=== PATIENT | female | born 1985 | race African-American/Black ===

== ENCOUNTER 2016-04-25 04:02 | Inpatient (IN) | payer OTHER ==
[~2016-04-25] VITALS: Ht 167.6 cm; Wt 75.0 kg
[~2016-04-25 04:02] MED LIST: FE A1TAB3 PO; FERR325T72 PO
[2016-04-25] MEDS ORDERED: NIFEdipine 10 MG CAP ONE (04:28)
[2016-04-25] MEDS ORDERED: LACTATED RINGER'S 1000 ML INJ 1,000 ML IV SCH ×3 (04:52→14:00)
[2016-04-25] MEDS ORDERED: MAGNESIUM SULFATE 40 GM PREMIX 1,000 ML IV SCH ×2 (04:52→12:00)
[2016-04-25] MEDS ORDERED: MAGNESIUM SULFATE 40 GM PREMIX 1,000 ML ONE (04:55)
[2016-04-25] MEDS ORDERED: MAGNESIUM SULFATE 4 GM PREMIX 100 ML ONE (04:55)
[2016-04-25] MEDS ORDERED: CALCIUM GLUCONATE 10% 1 GM/10 ML VIAL IV PUSH PRN (05:00)
[2016-04-25] MEDS ORDERED: ACETAMINOPHEN 325 MG TAB PO PRN ×2 (05:00→11:30)
[2016-04-25] MEDS ORDERED: ONDANSETRON HCL 4 MG/2 ML VIAL IV PRN (05:00)
[2016-04-25] MEDS ORDERED: SODIUM CHLORIDE 0.9% FLUSH 5 ML FLUSH IV PRN ×2 (05:00→11:30)
[2016-04-25] MEDS ORDERED: NIFEdipine 10 MG CAP PO PRN ×3 (05:00→05:45)
[2016-04-25] MEDS ORDERED: MAGNESIUM SULFATE 4 GM PREMIX 100 ML IV ONE (05:00)
[2016-04-25] MEDS ORDERED: LACTATED RINGER'S 1000 ML INJ 1,000 ML IV PRN (05:01)
--- NOTE | 2016-04-25 05:01 | PD ---
HPI Chief Complaint contractions Date Seen: Apr 25, 2016 Time Seen: 05:01 Travel History International Travel<30 Days: No Contact w/Intl Traveler<30Days: No Known Affected Area: No History of Present Illness HPI Patient is a 31 year old at 37 and 4/7 weeks gestation by second trimester ultrasound on 11/09/15, ROSE 05/12/2016, who presents to the OB ED with complaints of lower abdominal/uterine contractions every 5 minutes. She denies leakage of fluid, vaginal bleeding, and contractions. She feels baby moving regularly. She denies VARMA/N/V/D/fever/sick contacts/SOB/calf pain/dizziness/seeing spots. She denies dysuria and has not had dark urine. OB care is with [facility]. Notably, patient states she has never had issues with blood pressure during or outside of . Previously 3 pregnancies uncomplicated. For this , she denies having any complications, infections, abnormal labs, or abnormal ultrasound. She states she missed an appointment with [facility] last week and does not recall getting tested for GBS. She is having a boy and will like an epidural. EMR records show she wants a tubal ligation. Para: 3 : 4 History Past Medical History Medical History: Denies Significant Hx Obstetric History Obstetric History Previous pregnancies term vaginal deliveries No history of HTN, gestational HTN, or preE Past Surgical History Surgical History: No Previous Surgery Family History Family History: Negative Social History Narrative Social History Patient reports 1-2 cigarettes daily and occasional alcohol use prior to finding out she was Denies illicit drug use Alcohol Use: No Tobacco Use: No Substance Abuse: No Allergies-Medications (Allergen,Severity, Reaction): Coded Allergies: No Known Allergies (Unverified , 04/03/16) Home Meds Active Scripts Ferrous Gluconate 325 Mg Dac327 Mg PO DAILY #30 TAB Ref 0 Prov:Adrianna Cannon CNM [facility] 03/12/16 Multi-Yolanda/Iron-Vit C-U83-Pqexk Acid (Feriva 09/11)75-175-0.012-1 mg Tab1 Tab PO DAILY #30 BOTTLE Ref 6 Prov:Arianne Bergeron [employer] 02/28/16 Review of Systems General / Constitutional: No: Fever, Chills Eyes: No: Diploplia, Blurred Vision HENT: Other (no blurry vision), No: Headaches, Vertigo Cardiovascular: No: Chest Pain or Discomfort, Edema Respiratory: No: Short of Breath Gastrointestinal: Abdominal Pain, No: Vomiting, Diarrhea Genitourinary: No: Dysuria Musculoskeletal: No: Weakness Skin: No Rash Neurologic: No: Dizziness, Headache Hematologic/Lymphatic: No Easy Bruising Physical Exam Narrative GENERAL: Well-nourished, well-developed female having pain with contractions. SKIN: Warm and dry. No rashes. HEAD: Normocephalic and atraumatic. EYES: No scleral icterus. No injection or drainage. ENT: No nasal drainage noted. Mucous membranes pink. Airway patent. NECK: Supple, trachea midline. No JVD. CARDIOVASCULAR: Regular rate and rhythm without murmurs, gallops, or rubs. RESPIRATORY: Breath sounds equal bilaterally. No accessory muscle use. ABDOMEN/GI: Abdomen soft, non-tender, bowel sounds present, no rebound, no guarding Gravid to 36 weeks size GENITOURINARY: External Genitalia: intact and normal in appearance Cervix: medium consistency Dilatation: 5-6cm Effacement: 80% Station: -1 Presentation: vertex Membranes: intact Uterine Contractions: strong, every 5-6 minutes FHT's: Category: 1 Baseline: 145 Reactive: none Variability: moderate Decels: none EXTREMITIES: No cyanosis or edema. BACK: Nontender without obvious deformity. No CVA tenderness. NEUROLOGICAL: Awake and alert. Motor and sensory grossly within normal limits. Grossly normal muscle strength in all muscle groups. Normal speech. Data Data Orders Nifedipine (Procardia) (04/25/16 04:28) Admit To Inpatient (04/25/16 ) Vital Signs (Adult) Q5MX4,Q15MX4,Q30MX2,Q1H (04/25/16 04:52) Activity Bed Rest (04/25/16 04:52) Intake + Output Q1H (04/25/16 04:52) ^ Notify Parameters (04/25/16 04:52) ^ Heart CONTINUOUS (04/25/16 04:52) Urinary Catheter Management THERESA.Q8H (04/25/16 04:52) ^ Check Deep Tendon Reflexes Q1H (04/25/16 04:52) Diet Npo (04/25/16 Breakfast) Lactated Ringer's 1000 Ml Inj (Lr 1000 M (04/25/16 04:52) Sodium Chloride 0.9% Flush (Ns Flush) (04/25/16 05:00) Sodium Chloride 0.9% Flush (Ns Flush) (04/25/16 09:00) Magnesium Sulfate 40 Gm Premix (Magnesiu (04/25/16 04:52) Nifedipine (Procardia) (04/25/16 05:00) Nifedipine (Procardia) (04/25/16 05:15) Nifedipine (Procardia) (04/25/16 05:45) Labetalol Inj (Trandate Inj) (04/25/16 06:00) Calcium Gluconate Inj (Calcium Gluconate (04/25/16 05:00) Acetaminophen (Tylenol) (04/25/16 05:00) Ondansetron Inj (Zofran Inj) (04/25/16 05:00) Cbc No Diff, Includes Plts (04/26/16 06:00) Comprehensive Metabolic Panel (04/25/16 04:52) Uric Acid (04/25/16 04:52) Urinalysis - C+S If Indicated (04/25/16 04:52) Magnesium Sulfate 4 Gm Premix (Magnesium (04/25/16 05:00) ^ Halfway House Counselor / Telemetry (04/25/16 04:52) Specimen To Be Collected PRN (04/25/16 04:52) Ob (2e) Additional Admit Info (04/25/16 04:55) Magnesium Sulfate 4 Gm Premix (Magnesium (04/25/16 04:55) Magnesium Sulfate 40 Gm Premix (Magnesiu (04/25/16 04:55) MDM Medical Record Reviewed: Yes Interpretation(s) Vital signs: Initial BP 205/117, pulse 88, respiratory rate 22, temperature 98.1F. Repeat BPs showing modest decrease in systolic blood pressure, with most recent BP 155/102 at 0545 s/p nifedipine 10mg PO and Mg bolus. Narrative Course / MDM 31-year-old at 37 and 4/7 weeks, [facility] patient, presenting to the ED in labor and with elevated blood pressures indicative of Pre-Eclampsia. Intrauterine : Category 1 tracing Contractions every 5-6 minutes Expect No ROM Epidural for pain CBC pending U/A pending IV fluids Monitor heart tones Routine care Monitor strip, initiate labor augmentation if indicated Pre-Eclampsia: Blood pressures elevated to 200s/100s Rule out preeclampsia CBC, CMP, urinalysis, uric acid pending Procardia 10 mg by mouth x 1 followed by initiation of Mg gtt with bolus per protocol. Continue gtt at rate per protocol. Insert Gabriel. Monitor Is/Os and neuro exam. Blood pressure control with preeclampsia protocol: Procardia by mouth first, labetalol if blood pressure refractory to Procardia GBS unknown: >37 weeks gestation --> monitor clinically, continue expectant management, initiate antibx for fever, clinical signs of infx DW Dr. Yobani MD SDW Dr. Juan Antonio Gaitan. , PGY3 Diagnosis Diagnosis: Primary Impression: Pre-eclampsia Additional Impression: Normal intrauterine in third trimester Kenya Melgoza MD R1 Apr 25, 2016 05:01 Magnesium Sulfate 40 Gm Premix (Magnesiu (04/25/16 04:52) Nifedipine (Procardia) (04/25/16 05:00) Nifedipine (Procardia) (04/25/16 05:15) Nifedipine (Procardia) (04/25/16 05:45) Labetalol Inj (Trandate Inj) (04/25/16 06:00) Calcium Gluconate Inj (Calcium Gluconate (04/25/16 05:00) Acetaminophen (Tylenol) (04/25/16 05:00) Ondansetron Inj (Zofran Inj) (04/25/16 05:00) Cbc No Diff, Includes Plts (04/26/16 06:00) Comprehensive Metabolic Panel (04/25/16 04:52) Uric Acid (04/25/16 04:52) Urinalysis - C+S If Indicated (04/25/16 04:52) Magnesium Sulfate 4 Gm Premix (Magnesium (04/25/16 05:00) ^ Halfway House Counselor / Telemetry (04/25/16 04:52) Specimen To Be Collected PRN (04/25/16 04:52) Ob (2e) Additional Admit Info (04/25/16 04:55) Magnesium Sulfate 4 Gm Premix (Magnesium (04/25/16 04:55) Magnesium Sulfate 40 Gm Premix (Magnesiu (04/25/16 04:55) Kenya Melgoza MD R1 Apr 25, 2016 05:01
[2016-04-25] MEDS ORDERED: LIDOCAINE HCL 1% 50 ML VIAL INFIL PRN (05:15)
[2016-04-25] MEDS ORDERED: LIDOCAINE HCL 1% 50 ML VIAL I-DERMAL PRN (05:15)
[2016-04-25] MEDS ORDERED: OXYTOCIN 30 UNITS-500ML PREMIX 500 ML IV ONE (05:15)
[2016-04-25] MEDS ORDERED: CITRIC ACID-SODIUM CITRATE LIQ 30 ML UDC PO SCH (05:15)
[2016-04-25] MEDS ORDERED: PENICILLIN G POT 5,000,000 UNITS/NS 100 ML(Mini-Bag Plus) IV ONE ×2 (05:30)
[2016-04-25] MEDS ORDERED: fentaNYL 2MCG-BUPIV 0.125% INJ 100 ML ONE (05:31)
[2016-04-25 05:41] LABS: AUTOMATED NEUTROPHIL # 6.3 TH/MM3 (1.8-7.7); BASOPHIL % 0.3 % (0.0-2.0); EOSINOPHIL % 0.2 % (0.0-4.0); HEMATOCRIT 33.1 % (35.0-46.0); HEMO FLAGS DIFF FINAL; LYMPH % 21.6 % (9.0-44.0); MEAN CELL VOLUME 97.5 FL (80.0-100.0); MEAN CORPUSCULAR HEMOGLOBIN 33.3 PG (27.0-34.0); MEAN CORPUSCULAR HGB CONC 34.2 % (32.0-36.0); MONO % 8.3 % (0.0-8.0); NEUT % 69.6 % (16.0-70.0); PLATELET COUNT 172 TH/MM3 (150-450); RED BLOOD COUNT 3.39 MIL/MM3 (4.00-5.30); RED CELL DISTRIBUTION WIDTH 13.3 % (11.6-17.2)
[2016-04-25 05:46] LABS: ALKALINE PHOSPHATASE 114 U/L (45-117); ALT (GPT) 13 U/L (10-53); ANION GAP 10 MEQ/L (5-15); AST (GOT) 15 U/L (15-37); BICARBONATE 23.4 MEQ/L (21.0-32.0); BLOOD UREA NITROGEN 12 MG/DL (7-18); CHLORIDE 105 MEQ/L (98-107); GLOMERULAR FILTRATION RATE 88 ML/MIN (>89); POTASSIUM 3.6 MEQ/L (3.5-5.1); SODIUM (NA) 138 MEQ/L (136-145); TOTAL BILIRUBIN ADULT 0.3 MG/DL (0.2-1.0); URIC ACID 3.2 MG/DL (2.6-6.0)
--- NOTE | 2016-04-25 05:47 | HHI.HP ---
HPI Chief Complaint contractions Date Seen: Apr 25, 2016 Time Seen: 05:01 Travel History International Travel<30 Days: No Contact w/Intl Traveler<30Days: No Known Affected Area: No History of Present Illness HPI Patient is a 31 year old at 37 and 4/7 weeks gestation by second trimester ultrasound on 11/09/15, ROSE 05/12/2016, who presents to the OB ED with complaints of lower abdominal/uterine contractions every 5 minutes. She denies leakage of fluid, vaginal bleeding, and contractions. She feels baby moving regularly. She denies VARMA/N/V/D/fever/sick contacts/SOB/calf pain/dizziness/seeing spots. She denies dysuria and has not had dark urine. OB care is with [facility]. Notably, patient states she has never had issues with blood pressure during or outside of . Previously 3 pregnancies uncomplicated. For this , she denies having any complications, infections, abnormal labs, or abnormal ultrasound. EMR notes do not document BP abnormalities during care, DESMOND 02/28/16 per EMR. She notable has anemia with Hgb 7.7 at 29 weeks, was started on iron, improved to 9.1 on March 09. She states she missed an appointment with [facility] last week and does not recall getting tested for GBS. She is having a boy and will like an epidural. EMR records show she wants a tubal ligation. Para: 3 : 4 History Past Medical History Medical History: Denies Significant Hx Obstetric History Obstetric History First in 2001: 40 weeks, , 7 lbs. 14 oz. male, 10 hour labor, epidural used First in 2004: 40 weeks, , 7 lbs. 5 oz. male, 4 hour labor, no epidural used First in 2011: 40 weeks, , 7 lbs. 5 oz. male, 3 hour labor, epidural used No history of HTN, gestational HTN, or preE labs: overall unremarkable, Hep B negative, rubella immune, 1 hour GGT 139, no documented 3 hour GTT. Negative aneuploidy screen during 10/2015. Negative MSAFP markers. Ultrasound 02/02/2016: Synechiae noted on ultrasound report Ultrasound 03/19/16: AGA, no anomalies noted, unable to evaluate for synechiae due to gestational age, normal amniotic fluid, 3 vessel cord, grade 2 posterior placenta, no evidence of previa, incidental BPP 11/27 Past Surgical History Surgical History: Unable to Obtain Family History Family History: Negative Social History Narrative Social History Patient reports 1-2 cigarettes daily and occasional alcohol use prior to finding out she was Denies illicit drug use Alcohol Use: No Tobacco Use: No Substance Abuse: No Allergies-Medications (Allergen,Severity, Reaction): Coded Allergies: No Known Allergies (Unverified , 04/03/16) Home Meds Active Scripts Ferrous Gluconate 325 Mg Zoh592 Mg PO DAILY #30 TAB Ref 0 Prov:CannonAdrianna CNM [facility] 03/12/16 Multi-Oylanda/Iron-Vit C-C71-Rarad Acid (Feriva 09/11)75-175-0.012-1 mg Tab1 Tab PO DAILY #30 BOTTLE Ref 6 Prov:Arianne Bergeron [facility] 02/28/16 Review of Systems General / Constitutional: No: Fever, Chills Eyes: No: Diploplia, Blurred Vision HENT: No: Headaches Cardiovascular: No: Chest Pain or Discomfort, Palpitations Respiratory: No: Cough, Short of Breath Gastrointestinal: Abdominal Pain, No: Nausea, Vomiting, Diarrhea, Constipation Genitourinary: No: Dysuria Musculoskeletal: No: Weakness Skin: No Rash Neurologic: No: Weakness, Syncope Hematologic/Lymphatic: No Easy Bruising Physical Exam Narrative GENERAL: Well-nourished, well-developed female having pain with contractions. SKIN: Warm and dry. No rashes. HEAD: Normocephalic and atraumatic. EYES: No scleral icterus. No injection or drainage. ENT: No nasal drainage noted. Mucous membranes pink. Airway patent. NECK: Supple, trachea midline. No JVD. CARDIOVASCULAR: Regular rate and rhythm without murmurs, gallops, or rubs. RESPIRATORY: Breath sounds equal bilaterally. No accessory muscle use. ABDOMEN/GI: Abdomen soft, non-tender, bowel sounds present, no rebound, no guarding Gravid to 36 weeks size GENITOURINARY: External Genitalia: intact and normal in appearance Cervix: medium consistency Dilatation: 5-6cm Effacement: 80% Station: -1 Presentation: vertex Membranes: intact Uterine Contractions: strong, every 5-6 minutes FHT's: Category: 1 Baseline: 145 Reactive: none Variability: moderate Decels: none EXTREMITIES: No cyanosis or edema. BACK: Nontender without obvious deformity. No CVA tenderness. NEUROLOGICAL: Awake and alert. Motor and sensory grossly within normal limits. Grossly normal muscle strength in all muscle groups. Normal speech. Data Data Vital Signs Reviewed: Yes (Initial BP 205/117, pulse 88, respiratory rate 22, temperature 98.1F. Repeat BPs downtrending, with most recent BP 155/102 at 0545 s/p nifedipine 10mg PO and Mg bolus) Orders Nifedipine (Procardia) (04/25/16 04:28) Admit To Inpatient (04/25/16 ) Vital Signs (Adult) Q5MX4,Q15MX4,Q30MX2,Q1H (04/25/16 04:52) Activity Bed Rest (04/25/16 04:52) Intake + Output Q1H (04/25/16 04:52) ^ Notify Parameters (04/25/16 04:52) ^ Heart CONTINUOUS (04/25/16 04:52) Urinary Catheter Management THERESA.Q8H (04/25/16 04:52) ^ Check Deep Tendon Reflexes Q1H (04/25/16 04:52) Diet Npo (04/25/16 Breakfast) Lactated Ringer's 1000 Ml Inj (Lr 1000 M (04/25/16 04:52) Sodium Chloride 0.9% Flush (Ns Flush) (04/25/16 05:00) Sodium Chloride 0.9% Flush (Ns Flush) (04/25/16 09:00) Magnesium Sulfate 40 Gm Premix (Magnesiu (04/25/16 04:52) Nifedipine (Procardia) (04/25/16 05:00) Nifedipine (Procardia) (04/25/16 05:15) Nifedipine (Procardia) (04/25/16 05:45) Labetalol Inj (Trandate Inj) (04/25/16 06:00) Calcium Gluconate Inj (Calcium Gluconate (04/25/16 05:00) Acetaminophen (Tylenol) (04/25/16 05:00) Ondansetron Inj (Zofran Inj) (04/25/16 05:00) Cbc No Diff, Includes Plts (04/26/16 06:00) Comprehensive Metabolic Panel (04/25/16 04:52) Uric Acid (04/25/16 04:52) Magnesium Sulfate 4 Gm Premix (Magnesium (04/25/16 05:00) ^ Loan Auditor / Telemetry (04/25/16 04:52) Specimen To Be Collected PRN (04/25/16 04:52) Ob (2e) Additional Admit Info (04/25/16 04:55) Magnesium Sulfate 4 Gm Premix (Magnesium (04/25/16 04:55) Magnesium Sulfate 40 Gm Premix (Magnesiu (04/25/16 04:55) Admit To Inpatient (04/25/16 ) Code Status (04/25/16 05:01) Vital Signs (Adult) .Per protocol (04/25/16 05:01) ^ Heart (04/25/16 05:01) ^ Amnioinfusion (04/25/16 05:01) Urinary Catheter Management .ONCE (04/25/16 05:01) Lactated Ringer's 1000 Ml Inj (Lr 1000 M (04/25/16 05:01) Lactated Ringer's 1000 Ml Inj (Lr 1000 M (04/25/16 05:01) Lidocaine 1% Inj (50 Ml) (Xylocaine 1% I (04/25/16 05:15) Citric Acid-Sodium Citrate Liq (Bicitra (04/25/16 05:15) Fentanyl Inj (Fentanyl Inj) (04/25/16 05:15) Fentanyl Inj (Fentanyl Inj) (04/25/16 05:15) ^ Epidural / Intrathecal Infus (04/25/16 05:01) Oxytocin 30 Units-500ml Premix (Pitocin (04/25/16 05:15) Lidocaine 1% Inj (50 Ml) (Xylocaine 1% I (04/25/16 05:15) Inpatient Certification (04/25/16 ) Hold Clot (04/25/16 05:08) Abo/Rh Blood Type (04/25/16 05:08) Penicillin G Potassium Inj (Pfizerpen-G (04/25/16 05:30) Penicillin G Potassium Inj (Pfizerpen-G (04/25/16 10:00) Fentanyl 2mcg-Bupiv 0.125% Inj (Fentanyl (04/25/16 05:31) Complete Blood Count With Diff (04/25/16 05:33) Urinalysis - C+S If Indicated (04/25/16 05:33) Labs Laboratory Tests Test 04/25/16 04:40 White Blood Count 9.0 Red Blood Count 3.39 Hemoglobin 11.3 Hematocrit 33.1 Mean Corpuscular Volume 97.5 Mean Corpuscular Hemoglobin 33.3 Mean Corpuscular Hemoglobin 34.2 Concent Red Cell Distribution Width 13.3 Platelet Count 172 Mean Platelet Volume 10.7 Neutrophils (%) (Auto) 69.6 Lymphocytes (%) (Auto) 21.6 Monocytes (%) (Auto) 8.3 Eosinophils (%) (Auto) 0.2 Basophils (%) (Auto) 0.3 Neutrophils # (Auto) 6.3 Lymphocytes # (Auto) 2.0 Monocytes # (Auto) 0.8 Eosinophils # (Auto) 0.0 Basophils # (Auto) 0.0 CBC Comment DIFF FINAL Differential Comment Assessment/Plan Problem List: (1) Normal intrauterine in third trimester (2) Pre-eclampsia (3) GBS unknown at >37 weeks gestation Assessment and Plan 31-year-old at 37 and 4/7 weeks, [facility] patient, presenting to the ED in labor and with elevated blood pressures indicative of Pre-Eclampsia. Intrauterine : Category 1 tracing Contractions every 5-6 minutes Expect No ROM Epidural for pain CBC pending U/A pending IV fluids Monitor heart tones Routine care Monitor strip, initiate labor augmentation if indicated Pre-Eclampsia: Blood pressures elevated to 200s/100s Rule out preeclampsia CBC, CMP, urinalysis, uric acid pending Procardia 10 mg by mouth x 1 followed by initiation of Mg gtt with bolus per protocol. Continue gtt at rate per protocol. Insert Gabriel. Monitor Is/Os and neuro exam. Blood pressure control with preeclampsia protocol: Procardia by mouth first, labetalol if blood pressure refractory to Procardia GBS unknown: >37 weeks gestation --> monitor clinically, continue expectant management, initiate antibx for fever, clinical signs of infx DW Dr. Yobani MD SDW Dr. Juan Antonio Gaitan. , PGY3 Kenya Melgoza MD R1 Apr 25, 2016 05:47
[2016-04-25 05:56] LABS: BLOOD, URINE NEG (NEG); GLUCOSE,URINE NEG (NEG); HYALINE CAST, URINE 1 /lpf (RARE); KETONE, URINE NEG (NEG); MUCUS URINE FEW /lpf (OCC); NITRITE,URINE NEG (NEG); PH, URINE 6.5 (5.0-8.5); SQUAMOUS EPITHELIAL CELL URINE 2 /hpf (0-5); URINE COLOR YELLOW (YELLW/STRAW)
[2016-04-25 05:57] LABS: COMMENT (UR) CATH-CULT NOT IND; CULTURE IF INDICATED CATH CULTURE NOT IND
[2016-04-25] MEDS ORDERED: LABETALOL HCL 100 MG/20 ML VIAL IV PUSH PRN (06:00)
[2016-04-25] MEDS ORDERED: DO NOT ADMINISTER ANTICOAGULANTS XX PRN (06:45)
[2016-04-25] MEDS ORDERED: ePHEDrine/NS 50 MG/5 ML SYR IV PRN (06:45)
[2016-04-25] MEDS ORDERED: fentaNYL 2MCG-BUPIV 0.125% INJ 100 ML EPIDURAL SCH (06:45)
[2016-04-25] MEDS ORDERED: NO SYSTEM NARCOTICS XX PRN (06:45)
--- NOTE | 2016-04-25 07:11 | PD ---
History of Present Illness History of Present Illness This patient is a 31-year-old black female 37 weeks' gestation presents in active labor to OB ED. She is dilated 6 cm with intact membranes reactive heart rate tracing and contractions are regular. Also her blood pressure is 200/110 range and she has no history of hypertension. He is [facility] by [facility]. She is being seen by the family medicine residents as well as myself at the time of her admission. Patient was patient is one of active labor at 37 weeks gestation with a state induced hypertension/preeclampsia plan is to admit to labor and delivery expected vaginal delivery begin magnesium sulfate IV seizure prophylaxis check PIH lab and will anticipate vaginal delivery Angel Hilton II, MD Apr 25, 2016 07:10
[2016-04-25] MEDS ORDERED: SODIUM CHLORIDE 0.9% FLUSH 5 ML FLUSH IV SCH ×2 (09:00→11:30)
--- NOTE | 2016-04-25 09:24 | PD.LABORPN ---
Subjective Subjective Patient seen and exam. Epidural in place, patient comfortable. AROM with clear fluid. No current complaints. Objective Objective Pelvic Exam: Cervix: Mid Dilatation: 7cm Effacement: 90% Station: 0 Presentation: Vertex Membranes: AROM, clear fluid Uterine Contractions: Q5-6m FHT's: Category: 1 Baseline: 130 Reactive: + Variability:Moderate Decels: None Assessment/Plan Problem List: (1) Normal intrauterine in third trimester (2) Pre-eclampsia (3) GBS unknown at >37 weeks gestation Assessment and Plan Ms. Mtz is a 36 y/o at 37/4 in active labor -AROM with clear fluid -Epidural in place, patient comfortable -VSS -Continue routine labor care -Anticipate SDW: Jose David Ford MD R1 Apr 25, 2016 09:24
[2016-04-25] MEDS ORDERED: PENICILLIN G POT 2,500,000 UNITS/NS 100 ML IV SCH ×2 (10:00)
--- NOTE | 2016-04-25 10:31 | PD.LABORPN ---
Subjective Subjective Changing shifts Dr. Rasheed coming on duty; Patient comfortable with an epidural She is a 31-year-old 4 para 3 at 37 weeks being treated for preeclampsia Objective Objective Pelvic Exam: Cervix: [-] Midline Dilatation: [-] 9 cm Effacement: [-] 100% effaced Station: [-] -1 station Presentation: [-] Vertex Membranes: ruptured] clear per the rupturing DrAnahy Uterine Contractions: [-] Every 3 minutes FHT's: Category: [-] 1 Baseline: [-] 130 Reactive: [-]+ Variability: [-] Moderate Decels: [-] 0 Assessment/Plan Problem List: (1) Normal intrauterine in third trimester (2) Pre-eclampsia (3) GBS unknown at >37 weeks gestation Assessment and Plan Assessment; progressing to the second stage of labor Multiparous Blood pressure 139/92 On magnesium sulfate Plan; anticipate vaginal delivery Cristal Shaffer MD Apr 25, 2016 10:31
--- NOTE | 2016-04-25 11:22 | PD.OB.DELI ---
Delivery Date: Apr 25, 2016 Anesthesia: Epidural Episiotomy: None Vaginal Delivery: Normal Presentation: Occiput anterior Nuchal Cord: None Infant: Male One Minute : 7 Five Minute : 9 Weight: 3175 Infant Care: Suctioned, Blow-by O2 delivered Placenta: Spontaneous delivery, Intact, 3 vessel cord Laceration: No lacerations Additional Information This patient is a 31-year-old 4 now para 4 admitted in active labor with elevated blood pressure diagnosed with preeclampsia she was begun on magnesium sulfate Gabriel catheter placed draining adequate clear urine She progressed in labor received an epidural became comfortable rapidly progressed to the second stage she delivered over an intact perineum a viable male infant weight 3175 g equaling 7 pounds even with Apgars of 7 at 1 minute and 9 at 5 minutes Placenta delivered spontaneously and intact No lacerations Estimated blood loss less than 300 cc Sponge and instrument count were correct Uterus firm no active bleeding Baby stable mother stable Questions were answered Cristal Shaffer MD Apr 25, 2016 11:22
[2016-04-25] MEDS ORDERED: ALUMINUM/MAGNESIUM/SIMETH 30 ML CUP PO PRN (11:30)
[2016-04-25] MEDS ORDERED: ONDANSETRON ODT 4 MG TAB PO PRN (11:30)
[2016-04-25] MEDS ORDERED: BENZOCAINE 20% TOPICAL SPRAY 60 ML CAN TOPICAL PRN (11:30)
[2016-04-25] MEDS ORDERED: WITCH HAZEL 50%/GLYCERIN 12.5% 40 PAD JAR TOPICAL PRN (11:30)
[2016-04-25] MEDS ORDERED: ZOLPIDEM TARTRATE 5 MG TAB PO PRN (11:30)
[2016-04-25] MEDS ORDERED: DOCUSATE SODIUM 50 MG/SENNA 8.6 MG TAB PO PRN (11:30)
[2016-04-25] MEDS ORDERED: MISOPROSTOL 200 MCG TAB ONE (14:35)
--- NOTE | 2016-04-25 14:47 | HHI.PR ---
Subjective Remarks Patient is status post vaginal delivery No lacerations cervical or perineal Estimated blood loss was less than 300 cc Is presently on magnesium sulfate as she was diagnosed with preeclampsia Episode of bleeding Will not let anyone massager uterus she is given 50 mg of fentanyl for pain as vaginal exam needs to be done And with a sterile hand large clot removed from the cervical os 1300 cc and vagina and the uterus immediately contracted 400 g of Cytotec placed in the rectum Thousand cc of lactated Ringer's with with 30 units of Pitocin infusing at an open rate Hemoglobin initially was 11.3 repeat CBC ordered stat Blood pressure 123/69 pulse is 83 Will monitor the patient closely reevaluate and 15 minutes Objective Result Diagram: 04/25/1643904/25/16439 Cristal Shaffer MD Apr 25, 2016 14:47
[2016-04-25] MEDS ORDERED: OXYTOCIN 30 UNITS-500ML PREMIX 500 ML ONE (14:49)
[2016-04-25] MEDS ORDERED: MISOPROSTOL 200 MCG TAB PR ONE (15:00)
[2016-04-25] MEDS ORDERED: MEASLES, MUMPS, RUBELLA VACCINE 0.5 ML VIAL SQ ONE (16:00)
[2016-04-25] MEDS ORDERED: DIPHTH/TETANUS/ACEL PERTUSSIS (BOOSTER) 0.5 ML VIAL/PFS IM ONE (16:00)
[2016-04-25 16:58] LABS: AUTOMATED NEUTROPHIL # 11.7 TH/MM3 (1.8-7.7); BASOPHIL % 0.1 % (0.0-2.0); HEMATOCRIT 26.4 % (35.0-46.0); HEMO FLAGS DIFF FINAL; LYMPH % 5.1 % (9.0-44.0); LYMPHOCYTE # 0.7 TH/MM3 (1.0-4.8); MEAN CELL VOLUME 98.3 FL (80.0-100.0); MEAN CORPUSCULAR HEMOGLOBIN 33.4 PG (27.0-34.0); MEAN CORPUSCULAR HGB CONC 33.9 % (32.0-36.0); MONO % 8.3 % (0.0-8.0); NEUT % 86.5 % (16.0-70.0); PLATELET COUNT 134 TH/MM3 (150-450); RED BLOOD COUNT 2.69 MIL/MM3 (4.00-5.30); RED CELL DISTRIBUTION WIDTH 13.2 % (11.6-17.2); WHITE BLOOD COUNT 13.5 TH/MM3 (4.0-11.0)
[2016-04-25] MEDS: oxyCODONE/ACETAMINOPHEN 5 MG/325 MG TAB PO PRN ×2 (17:05→21:25)
[2016-04-26] MEDS: oxyCODONE/ACETAMINOPHEN 5 MG/325 MG TAB PO PRN ×3 (04:39→17:13)
[2016-04-26 06:58] LABS: HEMATOCRIT 25.2 % (35.0-46.0); MEAN CELL VOLUME 99.2 FL (80.0-100.0); MEAN CORPUSCULAR HEMOGLOBIN 34.2 PG (27.0-34.0); MEAN CORPUSCULAR HGB CONC 34.4 % (32.0-36.0); PLATELET COUNT 121 TH/MM3 (150-450); RED BLOOD COUNT 2.54 MIL/MM3 (4.00-5.30); RED CELL DISTRIBUTION WIDTH 13.3 % (11.6-17.2); REVIEW FLAG FINAL
--- NOTE | 2016-04-26 09:57 | HHI.OB ---
Subjective Post Day: 1 Remarks Mrs. Swanson is a pleasant 31-year-old G4 now P4, who delivered via vaginal delivery after being induced for severe preeclampsia. Her delivery was complicated by retention of products, that had to be manually evacuated. A stat CBC showed a decrease in hemoglobin from 11.3 to 9.0. A repeat CBC this morning showed a stable hemoglobin of 8.7. She reports that her bleeding has become less. History of present illness: Today she feels lightheaded. She feels more lightheaded when she sits upright. She had a headache, however with pain medication this resolved. She denies any changes in vision, palpitations, shortness of breath, or swelling in her lower extremities. She'll be on magnesium until 11 AM. Her blood pressures have been labile, and this morning at 0500 hrs it was 161/99. At 9 AM her blood pressure was 120/74. Her pain is fairly well controlled with Percocet. Objective Objective Remarks GENERAL: Well-nourished, well-developed patient. CARDIOVASCULAR: Regular rate and rhythm without murmurs, gallops, or rubs. RESPIRATORY: Breath sounds equal bilaterally. No accessory muscle use. ABDOMEN/GI: Abdomen soft, non-tender. Fundus: Firm, non-tender at umbilicus. GENITOURINARY: Light to moderate bleeding. EXTREMITIES: No cyanosis or edema, non-tender, without signs of DVT. Medications and IVs Current Medications Medications (Trade) Dose Ordered Sig/Jose Route Start Time Stop Time Status Last Admin (NS Flush) 2 ml BID IV 04/25/16 11:30 (NS Flush) 2 ml UNSCH PRN IV 04/25/16 11:30 (Tylenol) 650 mg Q4H PRN PO 04/25/16 11:30 (Motrin) 600 mg Q6H PRN PO 04/25/16 11:30 (Americaine 20% Top Spr) 1 spray Q4H PRN TOPICAL 04/25/16 11:30 (Tucks Pads) 1 applic QID PRN TOPICAL 04/25/16 11:30 (Berta-Colace) 2 tab Q12H PRN PO 04/25/16 11:30 (Ambien) 5 mg HS PRN PO 04/25/16 11:30 (Mag-Al Plus Susp Liq) 15 ml Q8H PRN PO 04/25/16 11:30 Ondansetron HCl 4 mg 4 mg Q6H PRN PO 04/25/16 11:30 Magnesium Sulfate 1,000 ml @ 50 mls/hr Q20H IV 04/25/16 12:00 (Lr 1000 ml Inj) 1,000 ml @ 75 mls/hr [id number] IV 04/25/16 14:00 (Percocet 5-325 Mg) 1 tab Q4H PRN PO 04/25/16 14:00 (Percocet 5-325 Mg) 2 tab Q4H PRN PO 04/25/16 14:00 04/26/16 08:10 Assessment/Plan Problem List: (1) Normal intrauterine in third trimester (2) Pre-eclampsia (3) GBS unknown at >37 weeks gestation Assessment and Plan 31-year-old G4 now P4 who delivered at 37 and 4/7 weeks 2/2 preeclampsia with severe features. She was placed on magnesium, and had retained products of delivery that needed to be manually extracted. A stat CBC showed a drop in hemoglobin from 11.3 --> 9.0. A repeat CBC was stable at 8.7. Her blood pressures remain elevated. day #1 Preeclampsia - continue magnesium for 24 hours after delivery, will be stopped at 1100 hrs. Reflexes are 2+ throughout. No signs of toxicity. Blood pressure at 5 AM was 161/70. We'll continue to monitor. Add antihypertensives if greater than 160 systolic. Continue with Motrin and Percocet when necessary pain. Monitor blood loss, repeat H&H stable at 8.7, however the patient is symptomatic on exam. Retained products - will continue to monitor for uterine tenderness or signs of infection. Mark Guerrero Dr., Dr., MD R2 Apr 26, 2016 09:57
[2016-04-26 20:00] VITALS: BP 122/76; PULSE 66; RESP 18; TEMP 98
[2016-04-27] MEDS: oxyCODONE/ACETAMINOPHEN 5 MG/325 MG TAB PO PRN ×3 (00:20→12:39)
[2016-04-27] MEDS: IBUPROFEN 600 MG TAB PO PRN ×2 (00:21→08:12)
[2016-04-27 04:40] VITALS: BP 118/69; PULSE 63; RESP 18
--- NOTE | 2016-04-27 09:06 | HHI.OB ---
Subjective Post Day: 2 Remarks doing well no problems BP WNL , bleeding decreased , star diet uterus at umb NT Plan to D/C today Objective Vitals/I&O Vital Signs Date Time Temp Pulse Resp B/P Pulse Ox O2 Delivery O2 Flow Rate FiO2 04/27/16 04:40 63 18 118/69 04/26/16 20:00 98.0 66 18 04/26/16 20:00 122/76 Objective Remarks GENERAL: Well-nourished, well-developed patient. CARDIOVASCULAR: Regular rate and rhythm without murmurs, gallops, or rubs. RESPIRATORY: Breath sounds equal bilaterally. No accessory muscle use. ABDOMEN/GI: Abdomen soft, non-tender. Fundus: Firm, non-tender at umbilicus. GENITOURINARY: Light to moderate bleeding. EXTREMITIES: No cyanosis or edema, non-tender, without signs of DVT. Medications and IVs Current Medications Medications (Trade) Dose Ordered Sig/Jose Route Start Time Stop Time Status Last Admin (NS Flush) 2 ml BID IV 04/25/16 11:30 (NS Flush) 2 ml UNSCH PRN IV 04/25/16 11:30 (Tylenol) 650 mg Q4H PRN PO 04/25/16 11:30 (Motrin) 600 mg Q6H PRN PO 04/25/16 11:30 04/27/16 08:12 (Americaine 20% Top Spr) 1 spray Q4H PRN TOPICAL 04/25/16 11:30 (Tucks Pads) 1 applic QID PRN TOPICAL 04/25/16 11:30 (Berta-Colace) 2 tab Q12H PRN PO 04/25/16 11:30 04/27/16 00:21 (Ambien) 5 mg HS PRN PO 04/25/16 11:30 (Mag-Al Plus Susp Liq) 15 ml Q8H PRN PO 04/25/16 11:30 Ondansetron HCl 4 mg 4 mg Q6H PRN PO 04/25/16 11:30 Magnesium Sulfate 1,000 ml @ 50 mls/hr Q20H IV 04/25/16 12:00 (Lr 1000 ml Inj) 1,000 ml @ 75 mls/hr [id number] IV 04/25/16 14:00 (Percocet 5-325 Mg) 1 tab Q4H PRN PO 04/25/16 14:00 04/27/16 08:12 (Percocet 5-325 Mg) 2 tab Q4H PRN PO 04/25/16 14:00 04/27/16 00:20 Assessment/Plan Problem List: (1) Normal intrauterine in third trimester (2) Pre-eclampsia (3) GBS unknown at >37 weeks gestation Assessment and Plan 31-year-old G4 now P4 who delivered at 37 and 4/7 weeks 2/2 preeclampsia with severe features. She was placed on magnesium, and had retained products of delivery that needed to be manually extracted. A stat CBC showed a drop in hemoglobin from 11.3 --> 9.0. A repeat CBC was stable at 8.7. Her blood pressures remain elevated. day #1 Preeclampsia - continue magnesium for 24 hours after delivery, will be stopped at 1100 hrs. Reflexes are 2+ throughout. No signs of toxicity. Blood pressure at 5 AM was 161/70. We'll continue to monitor. Add antihypertensives if greater than 160 systolic. Continue with Motrin and Percocet when necessary pain. Monitor blood loss, repeat H&H stable at 8.7, however the patient is symptomatic on exam. Retained products - will continue to monitor for uterine tenderness or signs of infection. Angel Prakash Dr., Dr., II, MD Apr 27, 2016 09:06
[2016-04-27 09:39] VITALS: BP 147/89
[2016-04-27] MEDS ORDERED: OXYC1TAB63 PO (09:49)
[2016-04-27] MEDS ORDERED: SENN1TAB PO (09:49)
[2016-04-27] MEDS ORDERED: IBUP-232 PO (09:49)
[2016-05-09] MEDS ORDERED: FERR325T72 PO (10:30)
[2016-05-09] MEDS ORDERED: MEDR150I9 IM (10:30)
[2016-05-09] MEDS ORDERED: SENN1TAB PO (10:30)
[2016-05-09] MEDS ORDERED: FE A1TAB3 PO (10:30)
[2016-05-09] MEDS ORDERED: DEPO150I IM (14:40)
[2016-07-31] MEDS ORDERED: DEPO150I IM (09:23)
== END 2016-04-27 13:38 | disposition home or self-care (01) | DRG 767 ==
LOC: HOBED 04:02 → UNDOADMIN 04:30 → H2EB 04:30 → H2EA 13:52 → H1EA 04-26 11:47
PROVIDERS: ADMIT Obstetrics & Gynecology Maternal & Fetal Medicine; ATTEND Obstetrics & Gynecology Maternal & Fetal Medicine
PROC: 10E0XZZ Delivery of Products of Conception, External Approach (ICD-10-PCS; principal; 2016-04-25)
PROC: 10D17ZZ Extraction of Products of Conception, Retained, Via Natural or Artificial Opening (ICD-10-PCS; 2016-04-25)
PROC: 10907ZC Drainage of Amniotic Fluid, Therapeutic from Products of Conception, Via Natural or Artificial Opening (ICD-10-PCS; 2016-04-25)
PROC: 3E0S3CZ (ICD-10-PCS; 2016-04-25)
PROC: 00HU33Z Insertion of Infusion Device into Spinal Canal, Percutaneous Approach (ICD-10-PCS; 2016-04-25)
DX: O14.94 Unspecified pre-eclampsia, complicating childbirth (principal); O72.2 Delayed and secondary postpartum hemorrhage; R42 Dizziness and giddiness; O99.013 Anemia complicating pregnancy, third trimester; D64.9 Anemia, unspecified; O99.333 Smoking (tobacco) complicating pregnancy, third trimester; F17.210 Nicotine dependence, cigarettes, uncomplicated; Z37.0 Single live birth; Z3A.37 37 weeks gestation of pregnancy
CPT/HCPCS: 80053; 81001; 84550; 85025; 85027; 86900; 86901; 90715; 99285; J2405; J2540; J2590; J3010; J3475; J7120

== ENCOUNTER 2016-09-14 09:35 | Emergency (ER) | payer OTHER ==
[~2016-09-14] VITALS: Ht 167.6 cm; Wt 60.0 kg
[~2016-09-14 09:35] MED LIST changes: -FERR325T72 PO; +MEDR150I9 IM
[2016-09-14 09:37] VITALS: BP 180/110; PULSE 72; RESP 20; TEMP 99; O2SAT 100
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
== END 2016-09-14 12:24 | disposition home or self-care (01) ==
LOC: NEPD 09:35
DX: H27.132 Posterior dislocation of lens, left eye (principal)
CPT/HCPCS: 70480; 99284

== ENCOUNTER → 2016-09-25 | Day surgery (SDC) | payer OTHER ==
[~2016-09-25] MED LIST changes: +DEXAMETHASONE SOD PHOS 4 MG/ML VIAL ONE; +ceFAZolin INJ 1,000 MG VIAL ONE
== END | disposition home or self-care (01) ==
LOC: ESDC 07:51
PROVIDERS: ATTEND Ophthalmology
DX: H43.02 Vitreous prolapse, left eye (principal)
CPT/HCPCS: J0690; J1100

== ENCOUNTER 2016-11-20 10:09 | Emergency (ER) | payer OTHER ==
[~2016-11-20] VITALS: Ht 170.2 cm; Wt 58.0 kg
[~2016-11-20 10:09] MED LIST changes: -DEXAMETHASONE SOD PHOS 4 MG/ML VIAL ONE; -ceFAZolin INJ 1,000 MG VIAL ONE
[2016-11-20 10:20] VITALS: BP 147/102; PULSE 80; RESP 14; TEMP 98.7; O2SAT 100
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
[2016-11-20] MEDS ORDERED: PROPARACAINE HCL 0.5% OPHT SOLN 15 ML BTL EACH EYE ONE (11:00)
[2016-11-20] MEDS ORDERED: ATROPINE SULFATE 1% OPHT SOLN 2 ML BTL RIGHT EYE ONE (11:00)
[2016-11-20] MEDS ORDERED: PRED1SUS6 RIGHT EYE (14:26)
== END 2016-11-20 13:45 | disposition home or self-care (01) ==
LOC: NEPC 10:09
DX: H11.31 Conjunctival hemorrhage, right eye (principal)
CPT/HCPCS: 99283

== ENCOUNTER 2017-01-05 10:02 | Emergency (ER) | payer OTHER ==
[~2017-01-05] VITALS: Ht 167.6 cm; Wt 55.0 kg
[~2017-01-05 10:02] MED LIST changes: -FE A1TAB3 PO; +PRED1SUS6 RIGHT EYE
[2017-01-05 10:04] VITALS: BP 142/86; PULSE 101; RESP 17; TEMP 98.1; O2SAT 99
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
[2017-01-05] MEDS ORDERED: PROPARACAINE HCL 0.5% OPHT SOLN 15 ML BTL EACH EYE ONE (11:30)
[2017-01-05 12:24] VITALS: BP 130/72; TEMP 97.8
[2017-01-06] MEDS ORDERED: NORC5TAB PO (21:48)
== END 2017-01-05 12:25 | disposition home or self-care (01) ==
LOC: NEPD 10:02
DX: H57.8 Other specified disorders of eye and adnexa (principal)
CPT/HCPCS: 99284

== ENCOUNTER 2017-01-06 19:56 | Emergency (ER) | payer OTHER ==
[~2017-01-06] VITALS: Ht 162.6 cm; Wt 72.0 kg
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
[2017-01-06] MEDS ORDERED: LIDOCAINE HCL 1% 50 ML VIAL INFIL ONE (20:15)
[2017-01-06 20:19] VITALS: BP 154/86; PULSE 88; RESP 16; TEMP 98.2; O2SAT 98
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
--- NOTE | 2017-01-06 21:15 | PD ---
Physical Exam Narrative Patient was seen by my financial assistant and signed out to me. Patient has blurry vision in the right eye and was seen by grazing aide and being follow-up with grazing aide outpatient. Patient is taking eyedrops for that right eye. Data Data Last Documented VS Vital Signs Date Time Temp Pulse Resp B/P (MAP) Pulse Ox O2 Delivery O2 Flow Rate FiO2 01/06/17 21:39 18 01/06/17 20:19 98.2 88 154/86 (108) [address] Brain W/O Iv Contrast(Rout) (01/06/17 20:13) Ct Facial Bones W/O Iv Cont (01/06/17 20:13) Lidocaine 1% Inj (50 Ml) (Xylocaine 1% I (01/06/17 20:15) Forearm (2vws) (01/06/17 20:43) Morphine Inj (Morphine Inj) (01/06/17 21:30) Ondansetron Inj (Zofran Inj) (01/06/17 21:30) MDM Supervised Visit with [facility]: Yes Diagnosis Primary Impression: Forehead laceration Qualified Codes: S01.81XA - Laceration without foreign body of other part of head, initial encounter Additional Impressions: Laceration of right forearm Qualified Codes: S51.811A - Laceration without foreign body of right forearm, initial encounter Closed head injury Qualified Codes: S09.90XA - Unspecified injury of head, initial encounter Scalp hematoma Qualified Codes: S00.03XA - Contusion of scalp, initial encounter Facial contusion Qualified Codes: S00.83XA - Contusion of other part of head, initial encounter Patient Instructions: General Instructions Additional Instruction: Wound care daily. Head trauma instructions given. Follow with grazing aide 5 problem. Return in 10 days for suture removal. Med/Other Pt SpecificInfo: Prescription(s) given Scripts Hydrocodone-Acetaminophen ([place]) 5-325 mg Tab 1 TAB PO Q6H Y for PAIN, #20 TAB 0 Refills Prov: Ang Hardy MD 01/06/17 Disposition: 01 DISCHARGE HOME Condition: Stable Ang Hardy MD Jan 06, 2017 21:15
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
[2017-01-06] MEDS ORDERED: ONDANSETRON HCL 4 MG/2 ML VIAL IV PUSH ONE (21:30)
[2017-01-06] MEDS ORDERED: MORPHINE SULFATE 4 MG/ML INJ IV PUSH ONE (21:30)
[2017-01-06 21:39] VITALS: RESP 18
[2017-01-06] MEDS ORDERED: NORC5TAB PO (21:48)
== END 2017-01-06 22:19 | disposition home or self-care (01) ==
LOC: NEPD 19:56
DX: S01.80XA Unspecified open wound of other part of head, initial encounter (principal); S51.811A Laceration without foreign body of right forearm, initial encounter; S00.03XA Contusion of scalp, initial encounter; Y04.8XXA Assault by other bodily force, initial encounter; Y92.009 Unspecified place in unspecified non-institutional (private) residence as the place of occurrence of the external cause
CPT/HCPCS: 12002; 12011; 70450; 70486; 73090; 96374; 96375; 99285; J2270; J2405

== ENCOUNTER 2017-01-17 10:26 | Emergency (ER) | payer OTHER ==
[~2017-01-17] VITALS: Ht 167.6 cm; Wt 55.0 kg
[~2017-01-17 10:26] MED LIST changes: -MEDR150I9 IM; +NORC5TAB PO; -PRED1SUS6 RIGHT EYE
[2017-01-17 10:28] VITALS: BP 183/92; PULSE 67; RESP 16; TEMP 98.6; O2SAT 98
--- NOTE | 2017-01-17 11:36 | PD ---
HPI Chief Complaint: Wound/Suture/Staple Re-Check Time Seen by Provider: 11:30 Travel History International Travel<30 days: No Contact w/Intl Traveler<30days: No Traveled to known affect area: No History of Present Illness HPI 32-year-old female here for suture and staple removal from her forehead and right upper extremity lacerations. Patient reports that the wounds are healing without complication. She denies pain, drainage from the site, fever or chills. She is no medical complaint. PFSH Past Medical History Medical History: Denies Significant Hx Diminished Hearing: No Immunizations Current: Yes Tetanus Vaccination: < 5 Years ?: Not LMP: 12/2016 : 4 Para: 4 Past Surgical History Surgical History: No Previous Surgery Social History Alcohol Use: No (pt denies) Tobacco Use: Yes (rare) Substance Use: No (pt denies) Allergies-Medications (Allergen,Severity, Reaction): Coded Allergies: No Known Allergies (Unverified , 01/17/17) Reported Meds & Prescriptions Reported Meds & Active Scripts Active [place] (Hydrocodone-Acetaminophen) 5-325 mg Tab 1 Tab PO Q6H PRN Review of Systems Except as stated in HPI: all other systems reviewed are Neg Physical Exam Narrative GENERAL: Well-nourished, well-developed patient. SKIN: Focused skin assessment warm/dry. Laceration to the forehead with sutures intact no sign of infection. Laceration to the right upper extremity was stable to intact healing well with no evidence of infection. HEAD: Normocephalic. EYES: No scleral icterus. No injection or drainage. NECK: Supple, trachea midline. No JVD or lymphadenopathy. MUSCULOSKELETAL: No cyanosis, or edema. Data Data Last Documented VS Vital Signs Date Time Temp Pulse Resp B/P (MAP) Pulse Ox O2 Delivery O2 Flow Rate FiO2 01/17/17 11:41 01/17/17 10:28 98.6 67 16 98 Room Air [facility] Medical Decision Making Medical Screen Exam Complete: Yes Emergency Medical Condition: Yes Differential Diagnosis Suture removal, staple removal, wound recheck Narrative Course 32-year-old female here for suture and staple removal from her forehead and right upper extremity lacerations. Patient reports that the wounds are healing without complication. On exam she has 2 well-healing wounds to the forehead and right upper extremity. [place] and sutures removed. Wound edges well approximated. No sign of infection. Procedures Procedure Narrative 4 sutures removed from the forehead 12 [place] removed from the right upper extremity All wound edges well approximated without drainage or signs of infection. Diagnosis Primary Impression: Removal of staple Referrals: [facility] Additional Instructions: Cleansed area daily with soap and water. Disposition: 01 DISCHARGE HOME Condition: Stable Michelle Max Jan 17, 2017 11:36
== END 2017-01-17 11:42 | disposition home or self-care (01) ==
LOC: NEPK 10:26
DX: Z48.02 Encounter for removal of sutures (principal)
CPT/HCPCS: 99281

== ENCOUNTER → 2017-01-22 | Day surgery (SDC) | payer OTHER ==
[~2017-01-22] MED LIST changes: +ACETAMINOPHEN 325 MG TAB ONE; +ACETYLCHOLINE CHL OPHT SOLN 1:100 2 ML VIAL ONE; +ATROPINE SULFATE 1% OPHT SOLN 5 ML BTL ONE; +DEXAMETHASONE SOD PHOS 4 MG/ML VIAL ONE; +EPINEPHrine HCL (1:1000) 1 MG/ML VIAL ONE; +LACTATED RINGER'S 1000 ML INJ 1,000 ML ONE; +MIDAZOLAM HCL 2 MG/2 ML VIAL ONE; +MOXIFLOXACIN 0.5% OPHT SOLN 3 ML BTL ONE; +ONDANSETRON HCL 4 MG/2 ML VIAL IV PUSH ONE; +PHENYLEPHRINE HCL 10% OPTH SOLN 5 ML BTL ONE; +PROPOFOL 200 MG/20 ML AMP IV ONE; +SODIUM CHLORIDE 0.9% INJ 10 ML ONE; +TETRACAINE 0.5% OPTH SOLN 15 ML BTL ONE; +TOBRAMYCIN/DEXAMETHASONE OPTH OINT 3.5 GM TUBE ONE; +TRIAMCINOLONE ACETONIDE 40 MG/ML VIAL ONE; +TROPICAMIDE 1% OPHT SOLN 15 ML BTL ONE; +ceFAZolin INJ 1,000 MG VIAL ONE; +prednisoLONE ACETATE 1% OPHT SUSP 5 ML BTL ONE
--- NOTE | 2017-01-29 07:49 | MP ---
cc: ARTHUR ROOT MD DATE OF SURGERY 01/28/2017 PREOPERATIVE DIAGNOSIS Dislocated cataract lens, status post severe trauma, vitreous hemorrhage, retinal detachment, retinal tear right eye. POSTOPERATIVE DIAGNOSIS Dislocated cataract lens, status post severe trauma, vitreous hemorrhage, retinal detachment, retinal tear right eye. PROCEDURE Pars plana vitrectomy, pars plana lensectomy, insertion of anterior chamber intraocular lens, retinal detachment repair, endolaser, insertion of 60% SF6 gas right eye. COMPLICATIONS None BLOOD LOSS Less than [address] Bob general INDICATIONS FOR PROCEDURE This patient presented multiple times after a severe trauma now both eyes. In the right eye, the patient was found to have a vitreous hemorrhage, dislocated cataract lens, suspicion for a retinal tear and significantly decreased visual acuity. The patient elected for surgical correction in hopes to salvage any remaining possible vision. PROCEDURE NOTE After informed consent was obtained, the patient brought to the operating room and anesthesia was established. The right eye was prepped and draped in a sterile fashion with Betadine in the conjunctival fornix. A three port pars plana vitrectomy was established with a self-retaining infusion cannula. Core vitreous was evacuated along vitreous hemorrhage and an intranasal retinal detachment with retinal tear was identified and treated with endolaser. Areas of retinal thinning were also treated with endolaser. The dislocated nuclear sclerotic cataract was removed with pars plana lensectomy. A scleral tunnel was fashioned with a blade and .0 mm keratome. An MTA4-U0 anterior chamber intraocular lens of 17.0 diopter power was inserted into the anterior chamber and rotated into position. A vitrectomy was made with the vitrector. Air-fluid exchange was carried out. The retina reattached. 16% SF6 gas was instilled. The scleral tunnel was closed with 7-0 Vicryl suture. Sclerotomies were closed with 7-0 Vicryl suture. The conjunctiva was reapproximated with 6-0 plain gut. A subconjunctival injections of Ancef and dexamethasone were given. The eye was patched with Tobramycin ointment. The patient was brought to the recovery room in stable condition. She will continue to follow up with [facility] for her postoperative care. MD BALTA Burnett/ALEKS /6:39 PM /7:28 AM
== END | disposition home or self-care (01) ==
LOC: ESDC 10:21
PROVIDERS: ATTEND Ophthalmology
DX: H33.011 Retinal detachment with single break, right eye (principal); H43.11 Vitreous hemorrhage, right eye; S05.91XD Unspecified injury of right eye and orbit, subsequent encounter; T85.22XA Displacement of intraocular lens, initial encounter
CPT/HCPCS: 00142; 00145; 66986; 67108; J0171; J0690; J1100; J2250; J2405; J3010; J3301; J7120; V2630

== ENCOUNTER → 2017-05-16 | Day surgery (SDC) | payer OTHER ==
[~2017-05-16] VITALS: Ht 168.9 cm; Wt 70.6 kg
[~2017-05-16] MED LIST changes: -ACETAMINOPHEN 325 MG TAB ONE; +ACETAMINOPHEN 500 MG CPLT PO PRN; -ACETYLCHOLINE CHL OPHT SOLN 1:100 2 ML VIAL ONE; +ATRO1SOL11 LEFT EYE; +ATROPINE SULFATE 1% OPHT SOLN 5 ML BTL LEFT EYE SCH; -ATROPINE SULFATE 1% OPHT SOLN 5 ML BTL ONE; +BALANCED SALT SOLN OPHT IRRIG 15 ML BTL ONE; +BUPIVACAINE HCL PF 0.75% 10 ML VIAL ONE; +CHLORHEXIDINE GLUCONATE 2 % 1 PACK (2 CLOTHS) TOPICAL PRN; +CYCLOPENTOLATE HCL 1% OPHT SOLN 2 ML BTL LEFT EYE SCH; +DEPO150I IM; +DILT120C50 PO; +DO NOT ADM ANY ANTICOAGULANT DRUGS PRN; +INSULIN HUMAN REGULAR 1,000 UNITS/10 ML VIAL SQ PRN; -LACTATED RINGER'S 1000 ML INJ 1,000 ML ONE; +LACTATED RINGER'S 1000 ML IV PRN; +METOPROLOL TARTRATE 25 MG TAB PO PRN; -MIDAZOLAM HCL 2 MG/2 ML VIAL ONE; -MOXIFLOXACIN 0.5% OPHT SOLN 3 ML BTL ONE; +NEOM0.1S4 LEFT EYE; -NORC5TAB PO; -ONDANSETRON HCL 4 MG/2 ML VIAL IV PUSH ONE; +ONDANSETRON HCL 4 MG/2 ML VIAL IV PUSH PRN; -PHENYLEPHRINE HCL 10% OPTH SOLN 5 ML BTL ONE; +PHENYLEPHRINE HCL 2.5% OPTH SOLN 2 ML BTL LEFT EYE SCH; +POVIDONE IODINE 5% (ANTISEPSIS KIT) 4 APPLICATIONS EACH NARE PRN; +PRED1SUS RIGHT EYE; -PROPOFOL 200 MG/20 ML AMP IV ONE; +RESP: ALBUTEROL 2.5 MG/3 ML NEB (PRN) ONE; +SODIUM CHLORID 0.9% 500 ML IV PRN; -SODIUM CHLORIDE 0.9% INJ 10 ML ONE; +STERILE WATER FOR INJECTION 20 ML VIAL ONE; -TETRACAINE 0.5% OPTH SOLN 15 ML BTL ONE; +TOBRAMYCIN 0.3%/DEXAMETHASONE 0.1% OPHT SUSP 5 ML BTL ONE; +TRAM50 PO; -TRIAMCINOLONE ACETONIDE 40 MG/ML VIAL ONE; +TRIAMCINOLONE ACETONIDE/PF 40 MG/ML OPTH VIAL ONE; +TROPICAMIDE 1% OPHT SOLN 15 ML BTL LEFT EYE SCH; -TROPICAMIDE 1% OPHT SOLN 15 ML BTL ONE; +oxyCODONE/ACETAMINOPHEN 5 MG/325 MG TAB PO PRN; -prednisoLONE ACETATE 1% OPHT SUSP 5 ML BTL ONE
[2017-05-16 09:50] LABS: AUTOMATED NEUTROPHIL # 3.6 TH/MM3 (1.8-7.7); BASOPHIL % 0.5 % (0.0-2.0); EOSINOPHIL % 0.8 % (0.0-4.0); HEMATOCRIT 34.1 % (35.0-46.0); HEMOGLOBIN 11.8 GM/DL (11.6-15.3); LYMPH % 26.7 % (9.0-44.0); LYMPHOCYTE # 1.5 TH/MM3 (1.0-4.8); MEAN CELL VOLUME 97.2 FL (80.0-100.0); MEAN CORPUSCULAR HEMOGLOBIN 33.5 PG (27.0-34.0); MEAN CORPUSCULAR HGB CONC 34.5 % (32.0-36.0); MEAN PLATELET VOLUME 9.6 FL (7.0-11.0); MONO % 7.7 % (0.0-8.0); MONOCYTE # 0.4 TH/MM3 (0-0.9); NEUT % 64.3 % (16.0-70.0); PLATELET COUNT 180 TH/MM3 (150-450); RED BLOOD COUNT 3.51 MIL/MM3 (4.00-5.30); RED CELL DISTRIBUTION WIDTH 13.1 % (11.6-17.2); WHITE BLOOD COUNT 5.6 TH/MM3 (4.0-11.0)
[2017-05-16 17:00] VITALS: BP 142/90; PULSE 82; RESP 18; TEMP 98; O2SAT 97
--- NOTE | 2017-05-16 22:52 | EKG ---
Date Performed: 05/16/2017 Time Performed: 09:27:54 PTAGE: 32 years EKG: Sinus rhythm NORMAL ECG NO PREVIOUS TRACING DOCTOR: Landry Hayes Interpretating Date/Time 05/16/2017 22:51:48
--- NOTE | 2017-05-19 09:58 | MP ---
cc: FLO VILLA M.D. 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 Closed funnel PVR, left eye. SURGEON Dr. Flo Villa ANESTHESIA General laryngeal mask anesthesia. INDICATIONS FOR PROCEDURE: Ms. Swanson is a 32 year-old female who first presented back in the fall with a total retinal detachment in the left eye due to trauma and a dislocated crystalline lens. She was offered surgery on several occasions but failed to show for the surgery. She then sustained more trauma and had dislocation of her crystalline lens in the right eye, and a retinal dialysis. She underwent a vitrectomy an IOL placement with Dr. Michele Mancilla and regained good visual acuity in that eye. She now wishes to proceed with a trial of repair of her left eye. She understands that the likelihood of useful vision is low due to the chronic nature of the detachment, however, she still wishes to proceed. She was consented for vitrectomy, buckle, possible silicon oil, laser, left eye. The B-scan preop showed a total retinal detachment in a funnel-like configuration. DESCRIPTION OF PROCEDURE: She was brought to [facility] operating room #1 and placed on the operating room table. Appropriate anesthesia monitoring devices were applied and she was placed under general anesthesia using laryngeal mask. The left eye was identified as the operative site and then prepped and draped in the usual sterile fashion. A lid speculum was placed. At this point an appropriate time-out was called with the surgical team agreeing to the proposed procedure and surgical site. A 360 degree peritomy at the limbus was done using conjunctival forceps and Berkley scissors. Relaxing incisions were made at 3 and 9 o'clock after being first marked with 6-0 silk. All four quadrants were opened with blunt dissection using the Berkley scissors. They all had good thickness. Next a point 10 mm posterior to the limbus was picked to support the vitreous base and 5-0 [place] was used to placed mattress sutures in all four quadrants. A 41 band was then threaded through the sutures and underneath the recti muscles and secured in the nasal periphery above the nasal rectus muscle. A three port vitrectomy was then carried out with the trocar cannulas being placed 3 mm posterior to the limbus. The crystalline lens was dislocated temporally and it was removed with the vitrectomy cutter. Two large dialysis were seen at superotemporal and inferior nasal and the retina was then affixed to close final configuration. Attempts to open it with Perfluoron were not successful. It is likely this detachment was irreparable. Therefore, the buckle was cinched up and secured. The eye was closed with the sclerotomies being closed with 7-0 Vicryl. The orbit was irrigated with a 0.75% Marcaine mixture without epinephrine and tobramycin. The conjunctiva was brought back up into place and closed using interrupted 7-0 chromic. The eye was left with good pressure and no visible leaks. Subconj injections of Ancef 125 milligrams in half cc, and Decadron 2 milligrams in 0.5 cc were given at separate sites. Atropine drops were placed on the cornea. The lid speculum was removed as the patient was undraped. TobraDex ointment was placed on the cornea and then the left eye was patched and shielded. The patient had the laryngeal mask in the room and was returned to recovery in good condition in a head elevated position. It will be discussed with her thoroughly at her postop appointment tomorrow, as the prognosis for that eye is very poor. MD JASWINDER Leblanc/CYDNIE /3:21 PM /8:47 AM
== END | disposition home or self-care (01) ==
LOC: HSDC 08:45
PROVIDERS: ATTEND Ophthalmology
DX: H33.052 Total retinal detachment, left eye (principal); T85.22XA Displacement of intraocular lens, initial encounter; H35.22 Other non-diabetic proliferative retinopathy, left eye; I10 Essential (primary) hypertension
CPT/HCPCS: 00145; 67108; 67121; 85025; 93005; J0171; J0690; J1100; J3010; J7613; J3300

== ENCOUNTER 2017-05-21 10:06 | Emergency (ER) | payer OTHER ==
[~2017-05-21] VITALS: Ht 167.6 cm; Wt 70.0 kg
[~2017-05-21 10:06] MED LIST changes: -ACETAMINOPHEN 500 MG CPLT PO PRN; -ATRO1SOL11 LEFT EYE; -ATROPINE SULFATE 1% OPHT SOLN 5 ML BTL LEFT EYE SCH; -BALANCED SALT SOLN OPHT IRRIG 15 ML BTL ONE; -BUPIVACAINE HCL PF 0.75% 10 ML VIAL ONE; -CHLORHEXIDINE GLUCONATE 2 % 1 PACK (2 CLOTHS) TOPICAL PRN; -CYCLOPENTOLATE HCL 1% OPHT SOLN 2 ML BTL LEFT EYE SCH; -DEXAMETHASONE SOD PHOS 4 MG/ML VIAL ONE; -DO NOT ADM ANY ANTICOAGULANT DRUGS PRN; -EPINEPHrine HCL (1:1000) 1 MG/ML VIAL ONE; -INSULIN HUMAN REGULAR 1,000 UNITS/10 ML VIAL SQ PRN; -LACTATED RINGER'S 1000 ML IV PRN; -METOPROLOL TARTRATE 25 MG TAB PO PRN; -NEOM0.1S4 LEFT EYE; -ONDANSETRON HCL 4 MG/2 ML VIAL IV PUSH PRN; -PHENYLEPHRINE HCL 2.5% OPTH SOLN 2 ML BTL LEFT EYE SCH; -POVIDONE IODINE 5% (ANTISEPSIS KIT) 4 APPLICATIONS EACH NARE PRN; -RESP: ALBUTEROL 2.5 MG/3 ML NEB (PRN) ONE; -SODIUM CHLORID 0.9% 500 ML IV PRN; -STERILE WATER FOR INJECTION 20 ML VIAL ONE; -TOBRAMYCIN 0.3%/DEXAMETHASONE 0.1% OPHT SUSP 5 ML BTL ONE; -TOBRAMYCIN/DEXAMETHASONE OPTH OINT 3.5 GM TUBE ONE; -TRAM50 PO; -TRIAMCINOLONE ACETONIDE/PF 40 MG/ML OPTH VIAL ONE; -TROPICAMIDE 1% OPHT SOLN 15 ML BTL LEFT EYE SCH; -ceFAZolin INJ 1,000 MG VIAL ONE; -oxyCODONE/ACETAMINOPHEN 5 MG/325 MG TAB PO PRN
[2017-05-21 10:08] VITALS: BP 165/94; PULSE 78; RESP 17; TEMP 98.5; O2SAT 98
[2017-05-21] MEDS ORDERED: NEOM0.1S4 LEFT EYE (10:44)
[2017-05-21] MEDS ORDERED: ATRO1SOL11 LEFT EYE (10:44)
[2017-05-21] MEDS ORDERED: TRAM50 PO (11:04)
--- NOTE | 2017-05-21 11:04 | PD ---
HPI Chief Complaint: Eye Problems/Injury Time Seen by Provider: 10:44 Travel History International Travel<30 days: No Contact w/Intl Traveler<30days: No Traveled to known affect area: No History of Present Illness HPI 32-year-old female complains of left eye pain. 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 Patient status post surgery to left eye I days ago. Patient states that she had persistent sharp pain localized to left eye since then. Patient was advised by her personal respiratory practitioner to take Tylenol for pain. Patient states that the pain persists despite taking Tylenol. Patient denies new injury. Patient denies any fever chills. PFSH Past Medical History Cancer: No Cardiovascular Problems: No Diabetes: No Diminished Hearing: No Endocrine: No Hepatitis: No Hiatal Hernia: No Hypertension: Yes Immune Disorder: No Musculoskeletal: No Neurologic: No Psychiatric: No Reproductive: No Respiratory: No Immunizations Current: Yes Thyroid Disease: No ?: Not : 4 Para: 4 Past Surgical History AICD: No Cardiac Surgery: No Ear Surgery: No Endocrine Surgery: No Eye Surgery: Yes (right eye and left eye lens replacement) Genitourinary Surgery: No Gynecologic Surgery: No Joint Replacement: No Oral Surgery: No Pacemaker: No Thoracic Surgery: No Social History Alcohol Use: No (pt denies) Tobacco Use: Yes (cigars) Substance Use: No Allergies-Medications (Allergen,Severity, Reaction): Coded Allergies: No Known Allergies (Unverified Allergy, Unknown, 05/16/17) Reported Meds & Prescriptions Reported Meds & Active Scripts Active Reported Ecnztebk-Jcpsksnou-Isnmsistxdegx Opth Drops 3.5-10,000-0.1 Mg-Units-% Susp 1 Drop LEFT EYE QID Atropine Opth Drops 1% Soln 1 Drop LEFT EYE DAILY Pred Forte Opth 1% (Prednisolone Acetate Opth 1%) 1% Susp 1 Drop RIGHT EYE BID Diltiazem CD 24 HR 120 Mg Caper 120 Mg PO DAILY Depo-Provera Inj (Medroxyprogesterone Inj) 150 Mg/Ml Inj 150 Mg IM ONCE Review of Systems General / Constitutional: No: Fever Eyes: Positive: Pain, No: Visual changes HENT: No: Headaches Cardiovascular: No: Chest Pain or Discomfort Respiratory: No: Shortness of Breath Gastrointestinal: No: Abdominal Pain Genitourinary: No: Dysuria Musculoskeletal: No: Pain Skin: No Rash Neurologic: No: Weakness Psychiatric: No: Depression Endocrine: No: Polydipsia Hematologic/Lymphatic: No: Easy Bruising Physical Exam Narrative GENERAL: Well-nourished, well-developed patient. SKIN: Focused skin assessment warm/dry. HEAD: Normocephalic. EYES: Left eye with hyphema. Mild soft tissue swelling upper eyelid. No redness no heat noted discharge. NECK: Supple, trachea midline. No JVD or lymphadenopathy. CARDIOVASCULAR: Regular rate and rhythm without murmurs, gallops, or rubs. RESPIRATORY: Breath sounds equal bilaterally. No accessory muscle use. GASTROINTESTINAL: Abdomen soft, non-tender, nondistended. MUSCULOSKELETAL: No cyanosis, or edema. BACK: Nontender without obvious deformity. No CVA tenderness. Data Data Last Documented VS Vital Signs Date Time Temp Pulse Resp B/P (MAP) Pulse Ox O2 Delivery O2 Flow Rate FiO2 05/21/17 10:08 98.5 78 17 165/94 (117) 98 MDM Medical Decision Making Medical Screen Exam Complete: Yes Emergency Medical Condition: Yes Differential Diagnosis Differential diagnosis including acute exacerbation of left eye pain status post surgery. Narrative Course 32-year-old female with left eye pain. Status post left eye surgery. I spoke with Dr. Villa, advised pain medication and follow with her in the office. Diagnosis Primary Impression: Pain, eye, left Additional Impression: Status post eye surgery Patient Instructions: General Instructions Additional Instructions: Tramadol as needed for pain. Follow-up with respiratory practitioner as scheduled. Med/Other Pt SpecificInfo: Prescription(s) given Scripts Tramadol (Ultram) 50 Mg Tab 50 MG PO Q6H Y for PAIN, #12 TAB 0 Refills Prov: Ang Hardy MD 05/21/17 Disposition: 01 DISCHARGE HOME Condition: Stable Ang Hardy MD May 21, 2017 11:04
== END 2017-05-21 11:21 | disposition home or self-care (01) ==
LOC: NEPD 10:06
DX: H57.12 Ocular pain, left eye (principal); Z98.890 Other specified postprocedural states; Z72.0 Tobacco use
CPT/HCPCS: 99283

== ENCOUNTER 2017-05-26 12:49 | Emergency (ER) | payer OTHER ==
[~2017-05-26 12:49] MED LIST changes: +ATRO1SOL11 LEFT EYE; +NEOM0.1S4 LEFT EYE; +TRAM50 PO
[2017-05-26 12:51] VITALS: BP 170/90; PULSE 64; RESP 16; TEMP 97.8; O2SAT 100
[2017-05-26] MEDS ORDERED: ACETAMINOPHEN/HYDROcodone 325 MG/7.5 MG TAB PO ONE (14:00)
[2017-05-26] MEDS ORDERED: HYDR-3516 PO (14:41)
--- NOTE | 2017-05-26 14:47 | PD ---
HPI Chief Complaint: Headache Time Seen by Provider: 13:29 Travel History International Travel<30 days: No Contact w/Intl Traveler<30days: No Traveled to known affect area: No History of Present Illness HPI 32-year-old female presents emergency department with worsening left eye pain. 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 Patient status post surgery to left eye on May 16, 2017. Patient states that she had persistent sharp pain localized to left eye since then. Patient states the pain has been worsening over the past several days. She reportedly was seen by her shoe parts caser 3 days ago and placed on diclofenac. She continues to use steroid ophthalmic drops as well as neomycin/polymyxin ophthalmic drops. She states the tramadol she was given which he came in here on the helped for a small amount of time but the pain is worse today than it was then. Patient denies any purulent drainage. She has no fever or chills. Pain is 9 out of 10. She has no known drug allergies. PFSH Past Medical History Cancer: No Cardiovascular Problems: No Diabetes: No Diminished Hearing: No Endocrine: No Hepatitis: No Hiatal Hernia: No Hypertension: Yes Immune Disorder: No Musculoskeletal: No Neurologic: No Psychiatric: No Reproductive: No Respiratory: No Immunizations Current: Yes Thyroid Disease: No Tetanus Vaccination: < 5 Years ?: Not : 4 Para: 4 Past Surgical History AICD: No Cardiac Surgery: No Ear Surgery: No Endocrine Surgery: No Eye Surgery: Yes (right eye and left eye lens replacement) Genitourinary Surgery: No Gynecologic Surgery: No Joint Replacement: No Oral Surgery: No Pacemaker: No Thoracic Surgery: No Other Surgery: Yes Social History Alcohol Use: No (pt denies) Tobacco Use: Yes (cigars) Substance Use: No Allergies-Medications (Allergen,Severity, Reaction): Coded Allergies: No Known Allergies (Unverified Allergy, Unknown, 05/26/17) Reported Meds & Prescriptions Reported Meds & Active Scripts Active Hydrocodone-Acetamin 5-325 mg (Hydrocodone/Acetaminophen) 5 Mg-325 Mg Tablet 1 Tab PO Q6HR Ultram (Tramadol HCl) 50 Mg Tab 50 Mg PO Q6H PRN Reported Kocrhlhn-Qyjxklmkn-Zhggcbynjhknu Opth Drops 3.5-10,000-0.1 Mg-Units-% Susp 1 Drop LEFT EYE QID Atropine Opth Drops 1% Soln 1 Drop LEFT EYE DAILY Pred Forte Opth 1% (Prednisolone Acetate Opth 1%) 1% Susp 1 Drop RIGHT EYE BID Diltiazem CD 24 HR 120 Mg Caper 120 Mg PO DAILY Depo-Provera Inj (Medroxyprogesterone Inj) 150 Mg/Ml Inj 150 Mg IM ONCE Review of Systems Except as stated in HPI: all other systems reviewed are Neg General / Constitutional: No: Fever, Chills Eyes: Positive: Blurred Vision, Photophobia, Redness, Pain, Tearing, Blindness , No: Diploplia, Drainage, Foreign Body Sensation, Blind Spots, Visual changes HENT: Positive: Headaches, No: Vertigo, Lightheadedness (Known), Sore Throat, Rhinitis, Rhinorrhea, Congestion, Nosebleed, Neck Stiffness, Neck Pain, Dental Difficulties, Earache Cardiovascular: No: Chest Pain or Discomfort Respiratory: No: Shortness of Breath Gastrointestinal: No: Abdominal Pain Genitourinary: No: Dysuria Musculoskeletal: No: Pain Skin: No Rash Neurologic: No: Weakness Psychiatric: No: Depression Endocrine: No: Polydipsia Hematologic/Lymphatic: No: Easy Bruising Physical Exam Narrative GENERAL: Patient appears in moderate discomfort. SKIN: Warm and dry. Normal color. Normal turgor. HEAD: Atraumatic. Normocephalic. EYES: Pupils equal and round. No scleral icterus. Left eye shows mild inflammation of both upper and lower eyelids. Patient has clear tearing drainage. The sclera appears inflamed and erythematous to the left eye. 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 There is no purulent drainage noted. There are no obvious ulcerations of the cornea. ENT: No nasal bleeding or discharge. Mucous membranes pink and moist. Pharynx is clear. Airway is patent. NECK: Trachea midline. Supple and nontender CARDIOVASCULAR: Regular rate and rhythm. RESPIRATORY: No accessory muscle use. Clear to auscultation. Breath sounds equal bilaterally. MUSCULOSKELETAL: Extremities without clubbing, cyanosis, or edema. No obvious deformities. NEUROLOGICAL: Awake and alert. No obvious cranial nerve deficits. Motor grossly within normal limits. Five out of 5 muscle strength in the arms and legs. Normal speech. PSYCHIATRIC: Appropriate mood and affect; insight and judgment normal. Data Data Last Documented VS Vital Signs Date Time Temp Pulse Resp B/P (MAP) Pulse Ox O2 Delivery O2 Flow Rate FiO2 05/26/17 12:51 97.8 64 16 170/90 (116) 100 Orders Orders Acetamin-Hydrocod 325-7.5 Mg ([place] 7.5 (05/26/17 14:00) MDM Medical Decision Making Medical Screen Exam Complete: Yes Emergency Medical Condition: Yes Medical Record Reviewed: Yes Differential Diagnosis Left thigh pain. Worsened conjunctivitis. Status post eye surgery. Narrative Course Patient is discussed with and examined with Dr. Amezquita. Patient is given Lortab 7.5/325 p.o. now. Call was placed to Dr. Villa, the shoe parts caser who performed the surgery. I spoke with Dr. Arambula the on-call shoe parts caser, who recommends no change in treatment other than pain management, and follow-up with Dr. Villa tomorrow. Patient is given a prescription for Lortab 5/325 one every 6 hours as needed # 12. Patient should call her shoe parts caser office for follow-up tomorrow. Diagnosis Primary Impression: Eye irritation Referrals: Angela Villa MD Patient Instructions: General Instructions Additional Instructions: I spoke with Dr. Arambula the on-call shoe parts caser, who recommends no change in treatment other than pain management, and follow-up with Dr. Villa tomorrow. Patient is given a prescription for Lortab 5/325 one every 6 hours as needed # 12. Patient should call her shoe parts caser office for follow-up tomorrow. Med/Other Pt SpecificInfo: Prescription(s) given Scripts Hydrocodone/Acetaminophen (Hydrocodone-Acetamin 5-325 mg) 5 Mg-325 Mg Tablet 1 TAB PO Q6HR, #12 Prov: Angelia Amezquita MD 05/26/17 Disposition: 01 DISCHARGE HOME Condition: Stable Raza Maciel May 26, 2017 14:47
--- NOTE | 2017-05-26 16:59 | PD ---
Data Data Last Documented VS Vital Signs Date Time Temp Pulse Resp B/P (MAP) Pulse Ox O2 Delivery O2 Flow Rate FiO2 05/26/17 15:09 05/26/17 12:51 97.8 64 16 100 Orders Orders Acetamin-Hydrocod 325-7.5 Mg ([place] 7.5 (05/26/17 14:00) Ed Discharge Order (05/26/17 14:57) MDM Supervised Visit with [facility]: Yes Narrative Course The history, exam, and medical decision-making in the associated midlevel provider note were completed with my assistance. I reviewed and agree with the findings presented. I attest that I had a [id number] encounter with the patient on the same day, and personally performed and documented my assessment and findings in the medical record. *My assessment and Findings: This is a 32-year-old female who presents to the emergency department having had surgery with lens removal to the left eye on May 16 who comes in with worsening pain in the left eye. She has diffuse conjunctival injection and some eyelid edema. She just saw her hanging flags decorator on Saturday and she says her pain has been constant since the surgery but it is getting a little bit worse. We discussed the case with the hanging flags decorator on- call for her surgeon and they will see her today in clinic. Patient was discharged with a short course of pain medication. Diagnosis Primary Impression: Eye irritation Referrals: Angela Villa MD Patient Instructions: General Instructions Departure Forms: Tests/Procedures Additional Instruction: I spoke with Dr. Arambula the on-call hanging flags decorator, who recommends no change in treatment other than pain management, and follow-up with Dr. Villa tomorrow. Patient is given a prescription for Lortab 5/325 one every 6 hours as needed # 12. Patient should call her hanging flags decorator office for follow-up tomorrow. Scripts Hydrocodone/Acetaminophen (Hydrocodone-Acetamin 5-325 mg) 5 Mg-325 Mg Tablet 1 TAB PO Q6HR, #12 Prov: Angelia Amezquita MD 05/26/17 Disposition: 01 DISCHARGE HOME Condition: Stable Angelia Amezquita MD May 26, 2017 16:59
== END 2017-05-26 15:11 | disposition home or self-care (01) ==
LOC: NEPD 12:49
DX: H57.12 Ocular pain, left eye (principal); R51 Headache; I10 Essential (primary) hypertension; F17.290 Nicotine dependence, other tobacco product, uncomplicated; Z98.890 Other specified postprocedural states; Z79.899 Other long term (current) drug therapy
CPT/HCPCS: 99283